=== PATIENT | male | born 2000 | race Caucasian/White ===

== ENCOUNTER 2019-06-20 17:19 | Emergency (ER) | payer MEDICAID, OTHER ==
[~2019-06-20] VITALS: Ht 182.9 cm; Wt 81.6 kg
[2019-06-20 17:24] VITALS: BP 116/84
--- NOTE | 2019-06-20 18:23 | NUR ---
Patient discharged to home in stable condition. Written and verbal after care instructions given. Patient verbalizes understanding of instruction.
== END 2019-06-20 18:24 | disposition home or self-care (01) ==
LOC: ER 17:23
DX: J01.90 Acute sinusitis, unspecified (principal)

== ENCOUNTER 2024-01-23 20:24 | Emergency (ER) | payer MEDICAID, OTHER ==
[~2024-01-23] VITALS: Ht 167.6 cm; Wt 83.9 kg
[2024-01-23] MEDS ORDERED: LIDOCAINE MPF 1%-EPI 1:200,000 30 ML VIAL IJ ONE (22:10)
[2024-01-23] MEDS ORDERED: TDAP [DIPH/PERTUSSIS/TET] 0.5 ML VIAL IM ONE (22:29)
[2024-01-23] MEDS ORDERED: IBUPROFEN 600 MG TABLET ONE (22:29)
[2024-01-23] MEDS: IBUPROFEN 600 MG TABLET PO ONE (22:50)
[2024-01-23] MEDS: TDAP [DIPH/PERTUSSIS/TET] 0.5 ML VIAL IM ONE (22:50)
[2024-01-24] MEDS ORDERED: IBUP-1955 PO (01:14)
[2024-01-24] MEDS ORDERED: ACET-2605 PO (01:14)
[2024-01-24] MEDS ORDERED: SULF1TAB48 PO (01:14)
[2024-01-24 01:22] VITALS: BP 127/70; TEMP 98.5; O2SAT 98
== END 2024-01-24 01:23 | disposition home or self-care (01) ==
LOC: ER 20:26
DX: S61.012A Laceration without foreign body of left thumb without damage to nail, initial encounter (principal); V89.2XXA Person injured in unspecified motor-vehicle accident, traffic, initial encounter; Y93.89 Activity, other specified; Y92.89 Other specified places as the place of occurrence of the external cause; Y99.8 Other external cause status
CPT/HCPCS: 12002; 70450; 73130; 90471; 90715; 99285; J3490

== ENCOUNTER 2024-01-28 12:50 | Emergency (ER) | payer MEDICAID ==
[~2024-01-28] VITALS: Ht 182.9 cm; Wt 83.9 kg
[~2024-01-28 12:50] MED LIST: ACET-2605 PO; IBUP-1955 PO; SULF1TAB48 PO
[2024-01-28 12:54] VITALS: BP 127/64; TEMP 98.7
[2024-01-28 13:14] VITALS: O2SAT 100
== END 2024-01-28 13:15 | disposition home or self-care (01) ==
LOC: ER 12:54
DX: S61.412D Laceration without foreign body of left hand, subsequent encounter (principal); X58.XXXD Exposure to other specified factors, subsequent encounter